=== PATIENT | female | born 1935 | race Caucasian/White ===

== ENCOUNTER → 2017-08-24 | Outpatient (CLI) | payer OTHER ==
[~2017-08-24] MED LIST: ACET-1600 PO; ACET-1757 PO; AMOX-291 PO; ASPI300S PO; ASPI325T17 PO; ASPI325T80 PO; CELE200C PO; CEPH-368 PO; CHOL2000 PO; CIPR500T87 PO; CLIN300C8 PO; DAPT500V6 IV; DIAZ5TAB4 PO; DOXY100C15 PO; GABA100C PO; MAG355OR14 PO; MELO7.5T31 PO; OMEP-110 PO; OXYC-302 PO; TYLENOL PO
== END ==
LOC: STAR 11:06
PROVIDERS: ATTEND Orthopaedic Surgery
DX: Z01.818 Encounter for other preprocedural examination (principal); S82.292D Other fracture of shaft of left tibia, subsequent encounter for closed fracture with routine healing; X58.XXXD Exposure to other specified factors, subsequent encounter; K21.9 Gastro-esophageal reflux disease without esophagitis
CPT/HCPCS: 93005

== ENCOUNTER 2017-08-29 07:12 | Observation (INO) | payer OTHER ==
[~2017-08-29] VITALS: Ht 157.5 cm; Wt 80.6 kg
[2017-08-29] MEDS ORDERED: LACTATED RINGERS 1,000 ML IV SCH (08:04)
[2017-08-29 08:07] VITALS: BP 126/82
[2017-08-29] MEDS ORDERED: LIDOCAINE 1%, 2ML SQ PRN (08:30)
[2017-08-29] MEDS ORDERED: MIDAZOLAM 1 MG/ML, 2ML ONE (09:58)
[2017-08-29] MEDS ORDERED: FENTANYL PF 250 MCG/5ML ONE (09:58)
[2017-08-29] MEDS ORDERED: BUPIVACAINE/PF 0.25% ONE (12:00)
[2017-08-29] MEDS ORDERED: NEOSPORIN OINT. PKT 1 PACKET ONE (12:01)
[2017-08-29] MEDS ORDERED: ONDANSETRON 2MG/ML, 2ML ONE (12:20)
[2017-08-29] MEDS ORDERED: PROPOFOL 10 MG/ML, 20ML ONE (12:20)
[2017-08-29] MEDS ORDERED: CEFAZOLIN 1,000 MG ONE (12:20)
[2017-08-29] MEDS ORDERED: DEXAMETHASONE 4 MG/ML, 1ML ONE (12:20)
[2017-08-29] MEDS ORDERED: HYDROcodone/APAP 7.5-325MG/15ML UDC PO PRN ×2 (12:30→15:30)
[2017-08-29] MEDS ORDERED: KETOROLAC 30 MG/1 ML IV PRN (12:30)
[2017-08-29] MEDS ORDERED: ONDANSETRON 2MG/ML, 2ML IVPush PRN (12:30)
[2017-08-29] MEDS ORDERED: hydrALAzine 20 MG/ML, 1ML IV PRN (12:30)
[2017-08-29] MEDS ORDERED: HYDROmorphone 1 MG/ML, 1ML IV PRN (12:30)
[2017-08-29] MEDS ORDERED: ALBUTEROL SULFATE 2.5 MG/3 ML NPPB PRN (12:30)
[2017-08-29] MEDS ORDERED: OXYcodone 5 MG/5 ML ORAL.SOL UDC PO PRN (12:30)
[2017-08-29] MEDS ORDERED: EPHEDRINE 50 MG/ML, 1ML IVPush PRN (12:30)
[2017-08-29] MEDS ORDERED: MIDAZOLAM 1 MG/ML, 2ML IV PRN (12:30)
[2017-08-29] MEDS ORDERED: METOPROLOL 1 MG/ML, 5ML IV PRN (12:30)
[2017-08-29] MEDS ORDERED: PROMETHAZINE 25 MG/ML, 1ML IV PRN (12:30)
[2017-08-29] MEDS ORDERED: LABETALOL 5MG/ML, 20ML IV PRN (12:30)
[2017-08-29] MEDS ORDERED: MEPERIDINE/PF 25MG/0.5ML IVPush PRN (12:30)
[2017-08-29] MEDS ORDERED: DIAZEPAM 5 MG/ML, 2ML IVPush PRN (12:30)
[2017-08-29] MEDS ORDERED: HYDROmorphone 2 MG/ML, 1ML ONE (12:31)
[2017-08-29] MEDS ORDERED: FENTANYL PF 100 MCG/2ML ONE (12:50)
[2017-08-29] MEDS ORDERED: OXYcodone 5 MG/5 ML ORAL.SOL UDC ONE (12:50)
[2017-08-29] MEDS: FENTANYL PF 100 MCG/2ML IV PRN ×2 (12:52→13:18)
[2017-08-29] MEDS ORDERED: KETOROLAC 30 MG/1 ML ONE (13:04)
[2017-08-29 13:50] VITALS: BP 130/68
[2017-08-29] MEDS ORDERED: PROMETHAZINE 25 MG/ML, 1ML IM PRN (15:30)
[2017-08-29] MEDS ORDERED: KETOROLAC 30 MG/1 ML IV SCH (15:30)
[2017-08-29] MEDS ORDERED: OXYcodone/APAP 5/325MG TABLET PO PRN (15:30)
[2017-08-29 20:21] VITALS: BP 120/70
[2017-08-29] MEDS: KETOROLAC 30 MG/1 ML IV SCH (21:00)
[2017-08-29] MEDS: LACTATED RINGERS 1,000 ML IV SCH (21:00)
[2017-08-30 00:15] VITALS: BP 116/60
[2017-08-30 03:58] VITALS: BP 105/63
[2017-08-30 07:14] VITALS: BP 115/74
[2017-08-30] MEDS: KETOROLAC 30 MG/1 ML IV SCH (07:28)
[2017-08-30] MEDS: LACTATED RINGERS 1,000 ML IV SCH (08:59)
[2017-08-30] MEDS ORDERED: FLU VACC QS2017-18 (36MOS+) UP/PF 0.5 ML IM-VACC ONE (11:30)
[2017-08-30] MEDS ORDERED: TRAM50TA2 PO (11:37)
[2017-08-30] MEDS ORDERED: ASPI-496 PO (11:37)
== END 2017-08-30 12:36 | disposition home or self-care (01) ==
LOC: OUT 07:12 → 4NOR 13:44 → OUT 23:57 → 4NOR 23:57 → DCLOUNGE 08-30 12:22
PROVIDERS: ADMIT Orthopaedic Surgery; ATTEND Orthopaedic Surgery
DX: S82.302A Unspecified fracture of lower end of left tibia, initial encounter for closed fracture (principal); K21.9 Gastro-esophageal reflux disease without esophagitis; X58.XXXA Exposure to other specified factors, initial encounter; Y92.89 Other specified places as the place of occurrence of the external cause; Y93.89 Activity, other specified; Y99.8 Other external cause status; Z23 Encounter for immunization
CPT/HCPCS: 27758; 73590; 76001; 90471; 90686; 96374; 96376; 97161; 97530; C1713; C1762; G0378; G8978; G8979; G8980; J0690; J1100; J1170; J1885; J2250; J2405; J2704; J3010; J3490; J7120